=== PATIENT | male | born 1955 | race Caucasian/White ===

== ENCOUNTER 2017-01-08 14:25 | Observation (INO) | payer OTHER ==
[2017-01-08 14:41] VITALS: BMI 47.0
[2017-01-08 15:25] LABS: BASOPHIL 0.6 % (0-2.0); EOSINOPHIL 1.9 % (0-4.5); MCH 30.8 pg (25.7-33.7); MCHC 33.7 g/dl (32.0-35.9); MEAN CELL VOLUME 91.2 fl (80-96); MEAN PLT VOLUME 7.7 fl (7.5-11.1); NEUTROPHILS 68.3 % (42.8-82.8); PLATELET COUNT 213 K/MM3 (134-434); RDW 13.6 % (11.9-15.9); WHITE BLOOD COUNT 6.8 K/mm3 (4.0-10.0)
[2017-01-08 15:49] LABS: INR 1.1 (0.82-1.09); PROTHROMBIN TIME (PATIENT) 12.1 SEC (9.98-11.88)
[2017-01-08 15:52] LABS: ALBUMIN 3.3 g/dl (3.4-5.0); ANION GAP 7 (8-16); BILIRUBIN,TOTAL 0.4 mg/dL (0.2-1.0); CALCIUM 8.2 mg/dL (8.5-10.1); CO2 34 mmol/L (21-32); CREATININE 0.9 mg/dL (0.7-1.3); GLUCOSE,RANDOM 89 mg/dL (74-106); SGOT/AST 44 U/L (15-37); SGPT/ALT 36 U/L (12-78); TOT PROT 7.2 g/dl (6.4-8.2)
[2017-01-08 15:59] LABS: ALK PHOS 65 U/L (45-117); TROPONIN I < 0.02 ng/ml (0.00-0.05)
--- NOTE | 2017-01-08 16:11 | PDOC ---
[id number] No Limitations - History of Present Illness Initial Comments: CHIEF COMPLAINT: 61 y/o morbidly obese male with PMH HTN, CHF, ACS, gout c/o left lower extremity swelling and cough. HISTORY OF PRESENT ILLNESS: The patient states his legs are always swollen but the left lower leg became more swollen today. He also states he's had a dry cough for 3 weeks and he thinks he had bronchitis and is better. He states his doctor wants him to have oxygen at home but he doesn't yet. He denies f/c, n/v/ d, CP, SOB, abd pain, back pain, orthopnea. Vital signs on arrival are notable for pulse ox of 93% on RA. REVIEW OF SYSTEMS: GENERAL/CONSTITUTIONAL: No fever/chills. No weakness. No weight change. HEAD, EYES, EARS, NOSE AND THROAT: No change in vision. No ear pain or discharge. No sore throat. CARDIOVASCULAR: No chest pain or shortness of breath. RESPIRATORY: +dry cough. No wheezing, or hemoptysis. GASTROINTESTINAL: No abd pain, nausea, vomiting, diarrhea. GENITOURINARY: No dysuria, frequency, or change in urination. MUSCULOSKELETAL: +left lower extremity swelling. No neck or back pain. SKIN: No rash or easy bruising. NEUROLOGIC: No headache, vertigo, loss of consciousness, or loss of sensation. PHYSICAL EXAM: GENERAL: The patient is awake, alert, and fully oriented, in no acute distress. He is morbidly obese with poor hygiene. HEAD: Normal with no signs of trauma. ENT: Pupils equal, round and reactive to light, extraocular movements intact, sclera anicteric, conjunctiva clear. Neck supple. LUNGS: Distant breath sounds secondary to body habitus. Normal excursion. No respiratory distress or use of accessory muscles. CV: RRR, S1/S2, no MRG. Cap refill < 2 sec. ABDOMEN: Soft, non-distended, non-tender even to deep palpation, no hepatomegaly or splenomegaly, no masses. EXTREMITIES: Normal range of motion. 2+ pitting brawny pitting edema of left lower extremity up to mid left calf, where there is a deep indentation from a sock. NEUROLOGICAL: Normal speech, normal gait. CN II-XII grossly intact. PSYCH: Normal mood, normal affect. SKIN: Warm, dry, normal turgor, no rashes or lesions noted. <Laura Albrecht - Last Filed: 01/08/17 18:54> <Yonis Ashby - Last Filed: 01/10/17 11:27> - General Chief Complaint: Pain, Acute Stated Complaint: SWOLLEN LT LEG Time Seen by Provider: 01/08/17 14:35 Past History - Past Medical History CVA: Yes (2) HTN: Yes Seizures: Yes - Psycho/Social/Smoking Cessation Hx Anxiety: No Suicidal Ideation: No Smoking History: Never smoked Have you smoked in the past 12 months: No Hx Alcohol Use: No Drug/Substance Use Hx: No Substance Use Type: None <Laura Albrecht - Last Filed: 01/08/17 18:54> <Yonis Ashby - Last Filed: 01/10/17 11:27> - Past Medical History Allergies/Adverse Reactions: Allergies Allergy/AdvReac Type Severity Reaction Status Date / Time Penicillins Allergy Verified 01/08/17 14:34 Home Medications: Ambulatory Orders Allopurinol [Zyloprim -] 100 mg PO DAILY 01/08/17 Amlodipine Besylate [Norvasc -] 5 mg PO DAILY 01/08/17 Furosemide [Lasix] 20 mg PO DAILY 01/08/17 Isosorbide Mononitrate [Isosorbide Mononitrate ER] 30 mg PO DAILY 01/08/17 Phenytoin 100 mg PO DAILY 01/08/17 Tamsulosin HCl 0.4 mg PO DAILY 01/08/17 *Physical Exam - Vital Signs Last Vital Signs Temp Pulse Resp BP Pulse Ox 97.8 F 64 18 113/79 93 L 01/08/17 14:36 01/08/17 14:36 01/08/17 14:36 01/08/17 14:36 01/08/17 14:36 <Laura Albrecht - Last Filed: 01/08/17 18:54> - Vital Signs Last Vital Signs Temp Pulse Resp BP Pulse Ox 98.0 F 60 20 111/71 93 L 01/09/17 11:28 01/09/17 11:28 01/09/17 11:28 01/09/17 11:28 01/09/17 11:28 <Yonis Ashby - Last Filed: 01/10/17 11:27> ED Treatment Course - LABORATORY CBC & Chemistry Diagram: 01/08/17 15:10 01/08/17 15:10 - ADDITIONAL ORDERS Additional order review: 01/08/17 15:10 RBC 4.47 MCV 91.2 MCHC 33.7 RDW 13.6 MPV 7.7 Neutrophils % 68.3 Lymphocytes % 21.5 Monocytes % 7.7 Eosinophils % 1.9 Basophils % 0.6 <Laura Albrecht - Last Filed: 01/08/17 18:54> - LABORATORY CBC & Chemistry Diagram: 01/08/17 15:10 01/08/17 15:10 - ADDITIONAL ORDERS Additional order review: 01/08/17 15:10 RBC 4.47 MCV 91.2 MCHC 33.7 RDW 13.6 MPV 7.7 Neutrophils % 68.3 Lymphocytes % 21.5 Monocytes % 7.7 Eosinophils % 1.9 Basophils % 0.6 - RADIOLOGY Radiology Studies Ordered: Category Date Time Status CHEST X-RAY PORTABLE* [RAD] Stat Radiology 01/08/17 16:44 Completed - Medications Given in the ED: ED Medications Discontinued Medications Generic Name Dose Route Start Last Admin Trade Name Freq PRN Reason Stop Dose Admin Acetaminophen 650 mg 01/09/17 06:52 01/09/17 06:52 Tylenol - PO 01/09/17 06:53 650 mg NOW ONE Administration Allopurinol 100 mg 01/09/17 10:00 01/09/17 10:12 Zyloprim - PO 100 mg DAILY JASON Administration Amlodipine Besylate 5 mg 01/09/17 10:00 01/09/17 10:12 Norvasc - PO 5 mg DAILY JASON Administration Enoxaparin Sodium 40 mg 01/09/17 10:00 01/09/17 10:12 Lovenox - SQ 40 mg DAILY JASON Administration Furosemide 20 mg 01/09/17 10:00 01/09/17 10:11 Lasix - PO 20 mg DAILY JASON Administration Isosorbide Mononitrate 30 mg 01/09/17 10:00 01/09/17 10:11 Imdur - PO 30 mg DAILY JASON Administration Levofloxacin 500 mg 01/08/17 22:15 01/08/17 22:53 Levaquin - PO 500 mg DAILY JASON Administration Levofloxacin 500 mg 01/09/17 08:00 01/09/17 08:25 Levaquin - PO 500 mg DAILY@0600 JASON Administration Phenytoin Sodium 100 mg 01/09/17 10:00 01/09/17 10:12 Dilantin Chewable Tablet - PO 100 mg DAILY JASON Administration Tamsulosin HCl 0.4 mg 01/09/17 08:30 01/09/17 08:25 Flomax - PO 0.4 mg DAILY@0830 JASON Administration <Yonis Ashby - Last Filed: 01/10/17 11:27> Medical Decision Making - Medical Decision Making A/P: 61 y/o male with dry cough x 3 weeks and left LE swelling and pain. Plan is as follows: 1. EKG 2. CXR 3. Labs 4. DVT ultrasound LLE CXR IMPRESSION: Mild bibasal atelectatic changes, right more than left. Cannot rule out superimposed infiltrates. BNP = 320 A manager of case from the patient's insurance company, [employer], called and informs us he has no home to be discharged to as he was evicted today and he cannot take care of himself. She is trying to find placement for him in a [facility]. She spoke with our ER social group worker, Olya, and the plan is for full admission if medically necessary or admission for obs for social work consult and [facility] placement tomorrow if no medical need for admission. Venous Dopper left LE IMPRESSION: No evidence of DVT Informed the patient of results and plan for admission to observation. Spoke with Dr. Anderson and explained the situation and she is amenable to social admission to obs for [facility] placement tomorrow. <Laura Albrecht - Last Filed: 01/08/17 18:54> - Medical Decision Making 01/10/17 11:27 The patient was seen and evaluated in conjunction with ZENAIDA Albrecht under my direct supervision, ancillary studies were reviewed. I agree with the plan as outlined by ZENAIDA Albrecht . <Yonis Ashby - Last Filed: 01/10/17 11:27> *DC/Admit/Observation/Transfer - Discharge Dispostion Admit: Yes <Laura Albrecht - Last Filed: 01/08/17 18:54> <Yonis Ashby - Last Filed: 01/10/17 11:27> Diagnosis at time of Disposition: Cough, Edema of left lower extremity - Discharge Dispostion Disposition: AGAINST MEDICAL ADVICE Condition at time of disposition: Good - Referrals
[2017-01-08 16:29] LABS: URINE APPEARANCE CLEAR; URINE BLOOD NEGATIVE (NEGATIVE); URINE COLOR AMBER; URINE GLUCOSE (UA) NEGATIVE (NEGATIVE); URINE KETONE NEGATIVE (NEGATIVE); URINE LEUK ESTERASE NEGATIVE (NEGATIVE); URINE NITRITE NEGATIVE (NEGATIVE); URINE UROBILINOGEN 4.0 E.U/dl E.U./dl (0.2-1.0)
[2017-01-08 16:34] LABS: URINE PROTEIN 1+ (NEGATIVE)
[2017-01-08 16:58] LABS: URINE BACTERIA RARE /hpf (NONE SEEN); URINE MUCUS FEW; URINE RBC 2 /hpf (0-3); URINE WBC 3 /hpf (3-5)
[2017-01-08] MEDS ORDERED: ALBUTEROL SO4 2.5/IPRATROPIUM 0.5 INH SOL 3 ML VIAL.NEB. NEB PRN (22:05)
[2017-01-08] MEDS ORDERED: LEVOFLOXACIN 500 MG TABLET (FP) PO SCH (22:15)
[2017-01-08] MEDS ORDERED: LEVOFLOXACIN 500 MG TABLET (FP) ONE (22:49)
[2017-01-09] MEDS ORDERED: ACETAMINOPHEN 325 MG TABLET (FP) ONE (06:13)
[2017-01-09] MEDS ORDERED: ACETAMINOPHEN 325 MG TABLET (FP) PO ONE (06:52)
[2017-01-09 07:15] LABS: TROPONIN I < 0.02 ng/ml (0.00-0.05)
[2017-01-09] MEDS ORDERED: LEVOFLOXACIN 500 MG TABLET (FP) PO SCH (08:00)
[2017-01-09] MEDS ORDERED: TAMSULOSIN HCL 0.4 MG CAP.ER.24H (FP) PO SCH (08:30)
[2017-01-09 08:55] VITALS: BP 111/71; PULSE 60
[2017-01-09] MEDS ORDERED: PHENYTOIN 50 MG TAB.CHEW PO SCH (10:00)
[2017-01-09] MEDS ORDERED: FUROSEMIDE 20 MG TABLET (FP) PO SCH ×2 (10:00)
[2017-01-09] MEDS ORDERED: amLODIPine BESYLATE 5 MG TABLET (FP) PO SCH ×2 (10:00)
[2017-01-09] MEDS ORDERED: ALLOPURINOL 100 MG TABLET (FP) PO SCH (10:00)
[2017-01-09] MEDS ORDERED: ENOXAPARIN NA (PORCINE) 40 MG/0.4 ML DISP.SYRIN SQ SCH (10:00)
[2017-01-09] MEDS ORDERED: PHENYTOIN 100 MG/4 ML U-D CUP PO SCH (10:00)
[2017-01-09] MEDS ORDERED: ISOSORBIDE MONONITRATE 30 MG TAB.SR.24H (FP) PO SCH (10:00)
[2017-01-09 11:36] VITALS: TEMP 98
--- NOTE | 2017-01-09 14:00 | CON.CARD ---
Consult Consult Specialty:: Cardiology Referred by:: Dr. Anderson Reason for Consultation:: edema - History of Present Illness Chief Complaint: edema History of Present Illness: 61 year old man with a history of Morbid obesity, chronic venous insufficiency with chronic b/l LE edema, possible chronic diastolic CHF, HTN noted to have continued b/l LE edema and as per staff sent to hospital for social reasons as he was evicted from his home and has no place to go. Pt. seen and examined in the er in [place]. denies any worsening of chronic wallis. denies chest pain. states LLE edema is slightly worse with some erythema. no pnd, orthopnea, or LE edema. Pt is insisting on going home and requests to be discharged. - Alcohol/Substance Use Hx Alcohol Use: No - Smoking History Smoking history: Never smoked Have you smoked in the past 12 months: No Home Medications - Allergies Allergies/Adverse Reactions: Allergies Allergy/AdvReac Type Severity Reaction Status Date / Time Penicillins Allergy Verified 01/08/17 14:34 - Home Medications Home Medications: Ambulatory Orders Allopurinol [Zyloprim -] 100 mg PO DAILY 01/08/17 Amlodipine Besylate [Norvasc -] 5 mg PO DAILY 01/08/17 Furosemide [Lasix] 20 mg PO DAILY 01/08/17 Isosorbide Mononitrate [Isosorbide Mononitrate ER] 30 mg PO DAILY 01/08/17 Phenytoin 100 mg PO DAILY 01/08/17 Tamsulosin HCl 0.4 mg PO DAILY 01/08/17 Vital Signs: Vital Signs Temperature 98.0 F 01/09/17 11:28 Pulse Rate 60 01/09/17 11:28 Respiratory Rate 20 01/09/17 11:28 Blood Pressure 111/71 01/09/17 11:28 O2 Sat by Pulse Oximetry (%) 93 L 01/09/17 11:28 - Other Data Labs, Other Data: INR, PTT INR 1.10 (0.82-1.09) 01/08/17 15:10 Troponin, BNP 01/09/17 06:00 Troponin I < 0.02 Troponin, BNP 01/09/17 06:00 Troponin I < 0.02 Assessment/Plan 61 year old man with a history of Morbid obesity, chronic venous insufficiency with chronic b/l LE edema, possible chronic diastolic CHF, HTN noted to have continued b/l LE edema and as per staff sent to hospital for social reasons as he was evicted from his home and has no place to go. Pt. seen and examined in the er in [place]. denies any worsening of chronic wallis. denies chest pain. states LLE edema is slightly worse with some erythema. no pnd, orthopnea, or LE edema. Pt is insisting on going home and requests to be discharged. Edema-chronic due to chronic venous insufficiency Doppler showed no evidence of DVT resume home meds keep legs elevated evaluate erythema LLE possible cellulitis does not need tele monitoring does not require inpatient management from a cardiac standpoint No additional inpatient cardiac work up up needed at this point, recc closes outpatient follow up
--- NOTE | 2017-01-09 14:48 | EKG ---
Test Reason : Blood Pressure : / mmHG Vent. Rate : 052 BPM Atrial Rate : 052 BPM P-R Int : 194 ms QRS Dur : 110 ms QT Int : 564 ms P-R-T Axes : 042 -13 030 degrees QTc Int : 524 ms SINUS BRADYCARDIA WITH SINUS ARRHYTHMIA NONSPECIFIC T WAVE ABNORMALITY ABNORMAL ECG NO PREVIOUS ECGS AVAILABLE Confirmed by HENOK JANG MD ([id number]) on 01/09/2017 2:47:44 PM Referred By: Confirmed By:HENOK JANG MD
--- NOTE | 2017-01-09 16:19 | HP ---
Admitting History and Physical - Smoking History Smoking history: Never smoked Have you smoked in the past 12 months: No - Alcohol/Substance Use Hx Alcohol Use: No Home Medications - Allergies Allergies/Adverse Reactions: Allergies Allergy/AdvReac Type Severity Reaction Status Date / Time Penicillins Allergy Verified 01/08/17 14:34 - Home Medications Home Medications: Ambulatory Orders Allopurinol [Zyloprim -] 100 mg PO DAILY 01/08/17 Amlodipine Besylate [Norvasc -] 5 mg PO DAILY 01/08/17 Furosemide [Lasix] 20 mg PO DAILY 01/08/17 Isosorbide Mononitrate [Isosorbide Mononitrate ER] 30 mg PO DAILY 01/08/17 Phenytoin 100 mg PO DAILY 01/08/17 Tamsulosin HCl 0.4 mg PO DAILY 01/08/17 Physical Examination Vital Signs: Vital Signs Temperature 98.0 F 01/09/17 11:28 Pulse Rate 60 01/09/17 11:28 Respiratory Rate 20 01/09/17 11:28 Blood Pressure 111/71 01/09/17 11:28 O2 Sat by Pulse Oximetry (%) 93 L 01/09/17 11:28
== END 2017-01-09 12:45 | disposition left against medical advice (07) ==
LOC: JER 14:25 → JERBED 19:31
PROVIDERS: ADMIT Internal Medicine; ATTEND Internal Medicine
DX: I87.2 Venous insufficiency (chronic) (peripheral) (principal); I11.0 Hypertensive heart disease with heart failure; I50.32 Chronic diastolic (congestive) heart failure; E66.01 Morbid (severe) obesity due to excess calories; Z68.42 Body mass index [BMI] 45.0-49.9, adult; Z71.3 Dietary counseling and surveillance
CPT/HCPCS: 36415; 71010-TC; 80053; 81003; 81015; 82550; 82553; 83880; 84484; 85025; 85610; 93005; 93010; 93971-TC; 99284-25; G0378